=== PATIENT | male | born 1935 | race Caucasian/White ===

== ENCOUNTER 2022-08-14 22:15 | Inpatient (IN) | payer MEDICARE, OTHER ==
[2022-08-15] MEDS ORDERED: Calcium Carbonate 500 MG ChewTAB PO PRN (00:52)
[2022-08-15] MEDS ORDERED: Ondansetron PF 4 MG/2 ML Vial IVP PRN (00:52)
[2022-08-15] MEDS ORDERED: Guaifenesin DM 100-10/5 ML UDCUP PO PRN (00:52)
[2022-08-15 01:25] VITALS: BMI 35.5
[2022-08-15 05:57] LABS: Anion Gap 14 mmol/L (10-20); BUN (Urea Nitrogen) 19 mg/dL (8.4-25.7); Calc. Creatinine Clearance 80 mL/min (70-130); Calcium 9.1 mg/dL (7.8-10.44); Carbon Dioxide 28 mmol/L (23-31); Chloride 105 mmol/L (98-107); Estimated GFR 69; Glucose 100 mg/dL (83-110); Potassium 4.3 mmol/L (3.5-5.1); Sodium 143 mmol/L (136-145)
[2022-08-15 06:07] LABS: #Eosinphils 0.3 10x3/uL (0.0-0.5); #Monocytes 0.6 10x3/uL (0.0-1.1); #Neutrophils 4.3 10x3/uL (1.5-8.4); %Basophils 0.6 % (0.0-2.0); %Lymphocytes 17.3 % (18.0-47.0); %Monocytes 8.8 % (0.0-10.0); Hemoglobin 12.3 g/dL (13.5-17.5); Mean Corpuscular HGB CONC 32.1 g/dL (32.0-36.0); Mean Corpuscular Hemoglobin 34.7 pg (27.0-33.0); Mean Corpuscular Volume 108.2 fl (81.2-95.1); Mean Platelet Volume 11.2 fl (7.4-10.4); Platelet Count 135 10x3/uL (150-450); RBC Distribution Width 15.2 % (11.5-14.5); Red Blood Cell (RBC) Count 3.54 10x6/uL (4.32-5.72); White Blood Cell (WBC) Count 6.8 10x3/uL (3.5-10.5)
[2022-08-15 06:23] LABS: CKMB 2.3 ng/mL (0-6.6)
[2022-08-15 07:09] LABS: Macrocytosis MODERATE=16-30 cells (100X) (0-5/hpf)
[2022-08-15 07:10] LABS: Hypochromia SLIGHT = 6-15 cells (100X) (0-5/hpf); Ovalocytes SLIGHT = 2-5 cells (100X) (0-1/hpf)
[2022-08-15 07:20] LABS: Platelet Morphology Comment Appears Decreased
[2022-08-15] MEDS ORDERED: Docusate 100 MG CAP PO SCH (09:00)
[2022-08-15] MEDS ORDERED: Allopurinol 100 MG TAB PO SCH ×2 (09:00→23:00)
[2022-08-15] MEDS: Famotidine 20 MG TAB PO SCH ×2 (09:45→21:37)
[2022-08-15] MEDS: valACYclovir 500 MG TAB PO SCH (09:45)
[2022-08-15] MEDS: Finasteride 5 MG TAB PO SCH (09:45)
[2022-08-15] MEDS: Multivitamin w/Zinc Stress 1 TAB PO SCH (09:45)
[2022-08-15] MEDS: Furosemide 40 MG TAB PO SCH (09:45)
[2022-08-15] MEDS: Loratadine 10 MG TAB PO SCH (09:45)
[2022-08-15] MEDS: Primidone 50 MG TAB PO SCH (09:45)
[2022-08-15] MEDS: NIFEdipine XL 30 MG TAB PO SCH ×2 (09:46→09:55)
[2022-08-15] MEDS: Metoprolol Tartrate 25 MG TAB PO SCH ×2 (09:46→21:37)
[2022-08-15] MEDS: Enoxaparin 120 MG/0.8 ML SYRINGE SC SCH ×2 (09:46→21:36)
[2022-08-15] MEDS: Acetaminophen 325 MG TAB PO PRN (10:01)
[2022-08-15] MEDS: Fluticasone Propionate Nasal Spray 16 gm Bottle NASAL SCH (10:40)
[2022-08-15] MEDS: HYDROcodone/Acetaminophen 5/325 mg Tablet PO PRN ×3 (11:05→22:13)
[2022-08-15] MEDS: Magnesium Oxide 250 MG TAB PO SCH (21:37)
[2022-08-15] MEDS: Docusate 100 MG CAP PO SCH (21:37)
[2022-08-15] MEDS: Atorvastatin Calcium 20 MG TAB PO SCH (21:37)
[2022-08-16 05:00] LABS: Hemoglobin 11.5 g/dL (13.5-17.5); Mean Corpuscular HGB CONC 31.8 g/dL (32.0-36.0); Mean Corpuscular Hemoglobin 34.5 pg (27.0-33.0); Mean Corpuscular Volume 108.7 fl (81.2-95.1); Mean Platelet Volume 11.3 fl (7.4-10.4); Platelet Count 133 10x3/uL (150-450); RBC Distribution Width 15.3 % (11.5-14.5); Red Blood Cell (RBC) Count 3.33 10x6/uL (4.32-5.72); White Blood Cell (WBC) Count 5.8 10x3/uL (3.5-10.5)
[2022-08-16 05:08] LABS: Anion Gap 13 mmol/L (10-20); BUN (Urea Nitrogen) 26 mg/dL (8.4-25.7); Calc. Creatinine Clearance 65 mL/min (70-130); Calcium 8.4 mg/dL (7.8-10.44); Carbon Dioxide 27 mmol/L (23-31); Chloride 103 mmol/L (98-107); Estimated GFR 54; Glucose 90 mg/dL (83-110); Potassium 3.8 mmol/L (3.5-5.1); Sodium 139 mmol/L (136-145)
[2022-08-16] MEDS: HYDROcodone/Acetaminophen 5/325 mg Tablet PO PRN ×4 (05:35→20:27)
[2022-08-16] MEDS: Docusate 100 MG CAP PO SCH ×2 (08:43→20:21)
[2022-08-16] MEDS: NIFEdipine XL 30 MG TAB PO SCH (08:43)
[2022-08-16] MEDS: Finasteride 5 MG TAB PO SCH (08:43)
[2022-08-16] MEDS: Enoxaparin 120 MG/0.8 ML SYRINGE SC SCH ×2 (08:44→20:22)
[2022-08-16] MEDS: Furosemide 40 MG TAB PO SCH (08:44)
[2022-08-16] MEDS: Metoprolol Tartrate 25 MG TAB PO SCH ×2 (08:44→20:21)
[2022-08-16] MEDS: Multivitamin w/Zinc Stress 1 TAB PO SCH (08:44)
[2022-08-16] MEDS: Allopurinol 100 MG TAB PO SCH ×2 (08:44→20:22)
[2022-08-16] MEDS: Famotidine 20 MG TAB PO SCH ×2 (08:44→20:21)
[2022-08-16] MEDS: Loratadine 10 MG TAB PO SCH (08:44)
[2022-08-16] MEDS: Primidone 50 MG TAB PO SCH (08:53)
[2022-08-16] MEDS: valACYclovir 500 MG TAB PO SCH (08:54)
[2022-08-16] MEDS: Fluticasone Propionate Nasal Spray 16 gm Bottle NASAL SCH (08:54)
[2022-08-16] MEDS: Atorvastatin Calcium 20 MG TAB PO SCH (20:21)
[2022-08-16] MEDS: Magnesium Oxide 250 MG TAB PO SCH (20:22)
[2022-08-16] MEDS ORDERED: Colchicine 0.6 MG TAB PO SCH (20:45)
[2022-08-17] MEDS: HYDROcodone/Acetaminophen 5/325 mg Tablet PO PRN ×2 (05:45→17:43)
[2022-08-17] MEDS: Fluticasone Propionate Nasal Spray 16 gm Bottle NASAL SCH (09:52)
[2022-08-17] MEDS: Multivitamin w/Zinc Stress 1 TAB PO SCH (09:54)
[2022-08-17] MEDS: Primidone 50 MG TAB PO SCH (09:55)
[2022-08-17] MEDS: Docusate 100 MG CAP PO SCH ×2 (09:58→21:20)
[2022-08-17] MEDS: Apixaban 5 MG TAB PO SCH ×2 (09:58→21:20)
[2022-08-17] MEDS: Famotidine 20 MG TAB PO SCH ×2 (09:58→21:20)
[2022-08-17] MEDS: valACYclovir 500 MG TAB PO SCH (09:59)
[2022-08-17] MEDS: Loratadine 10 MG TAB PO SCH (09:59)
[2022-08-17] MEDS: Colchicine 0.6 MG TAB PO SCH ×2 (09:59→21:21)
[2022-08-17] MEDS: Allopurinol 100 MG TAB PO SCH ×2 (10:00→21:21)
[2022-08-17] MEDS: Metoprolol Tartrate 25 MG TAB PO SCH ×2 (10:00→21:21)
[2022-08-17] MEDS: Finasteride 5 MG TAB PO SCH (10:03)
[2022-08-17] MEDS: Atorvastatin Calcium 20 MG TAB PO SCH (21:20)
[2022-08-17] MEDS: Magnesium Oxide 250 MG TAB PO SCH (21:21)
[2022-08-18] MEDS: HYDROcodone/Acetaminophen 5/325 mg Tablet PO PRN (02:26)
[2022-08-18 05:16] LABS: Hemoglobin 11.5 g/dL (13.5-17.5); Mean Corpuscular HGB CONC 31.8 g/dL (32.0-36.0); Mean Corpuscular Hemoglobin 34.6 pg (27.0-33.0); Mean Platelet Volume 10.2 fl (7.4-10.4); Platelet Count 145 10x3/uL (150-450); Red Blood Cell (RBC) Count 3.32 10x6/uL (4.32-5.72); White Blood Cell (WBC) Count 5.4 10x3/uL (3.5-10.5)
[2022-08-18 05:29] LABS: Anion Gap 15 mmol/L (10-20); BUN (Urea Nitrogen) 19 mg/dL (8.4-25.7); Calc. Creatinine Clearance 82 mL/min (70-130); Calcium 8.8 mg/dL (7.8-10.44); Carbon Dioxide 27 mmol/L (23-31); Chloride 102 mmol/L (98-107); Estimated GFR 71; Glucose 104 mg/dL (83-110); Potassium 4.3 mmol/L (3.5-5.1); Sodium 140 mmol/L (136-145)
[2022-08-18] MEDS: Colchicine 0.6 MG TAB PO SCH ×2 (08:55→21:33)
[2022-08-18] MEDS: Docusate 100 MG CAP PO SCH ×2 (08:55→21:35)
[2022-08-18] MEDS: Apixaban 5 MG TAB PO SCH ×2 (08:56→21:34)
[2022-08-18] MEDS: Metoprolol Tartrate 25 MG TAB PO SCH ×2 (08:57→21:35)
[2022-08-18] MEDS: Allopurinol 100 MG TAB PO SCH ×2 (08:59→21:34)
[2022-08-18] MEDS: Finasteride 5 MG TAB PO SCH (08:59)
[2022-08-18] MEDS: Famotidine 20 MG TAB PO SCH ×2 (08:59→21:35)
[2022-08-18] MEDS: Loratadine 10 MG TAB PO SCH (08:59)
[2022-08-18] MEDS: Multivitamin w/Zinc Stress 1 TAB PO SCH (09:00)
[2022-08-18] MEDS: Fluticasone Propionate Nasal Spray 16 gm Bottle NASAL SCH (09:01)
[2022-08-18] MEDS: valACYclovir 500 MG TAB PO SCH (09:07)
[2022-08-18] MEDS: Primidone 50 MG TAB PO SCH (09:07)
[2022-08-18] MEDS ORDERED: Polyethylene Glycol 3350 17 GM Packet PO PRN (10:22)
[2022-08-18] MEDS ORDERED: Polyethylene Glycol 3350 17 GM Packet PO SCH (10:30)
[2022-08-18] MEDS: Magnesium Oxide 250 MG TAB PO SCH (21:33)
[2022-08-18] MEDS: Atorvastatin Calcium 20 MG TAB PO SCH (21:33)
[2022-08-18] MEDS: Acetaminophen 325 MG TAB PO PRN (21:40)
[2022-08-18 22:30] LABS: #Basophils 0.1 10x3/uL (0.0-0.2); #Eosinphils 0.8 10x3/uL (0.0-0.5); #Monocytes 0.5 10x3/uL (0.0-1.1); #Neutrophils 3.7 10x3/uL (1.5-8.4); %Lymphocytes 16.4 % (18.0-47.0); %Monocytes 7.7 % (0.0-10.0); %Neutrophils 61.4 % (40.0-75.0); Hemoglobin 11.9 g/dL (13.5-17.5); Mean Corpuscular Hemoglobin 35.5 pg (27.0-33.0); Mean Platelet Volume 10.2 fl (7.4-10.4); Platelet Count 151 10x3/uL (150-450); Red Blood Cell (RBC) Count 3.35 10x6/uL (4.32-5.72); White Blood Cell (WBC) Count 6.1 10x3/uL (3.5-10.5)
[2022-08-18 22:47] LABS: ALT (SGPT) 36 U/L (8-55); AST (SGOT) 52 U/L (5-34); Albumin 3.4 g/dL (3.4-4.8); Alkaline Phosphatase 103 U/L (40-110); Anion Gap 14 mmol/L (10-20); BUN (Urea Nitrogen) 22 mg/dL (8.4-25.7); Bilirubin, Total 0.3 mg/dL (0.2-1.2); Calc. Creatinine Clearance 71 mL/min (70-130); Carbon Dioxide 29 mmol/L (23-31); Chloride 103 mmol/L (98-107); Estimated GFR 59; Globulin 2.3 g/dL (2.4-3.5); Glucose 138 mg/dL (83-110); Magnesium 2.2 mg/dL (1.6-2.6); Protein, Total 5.7 g/dL (5.8-8.1); Sodium 141 mmol/L (136-145)
[2022-08-18 22:49] LABS: Anisocytosis SLIGHT = 6-15 cells (100X) (0-5/hpf); Elliptocytes SLIGHT = 2-5 cells (100X) (0-1/hpf); Macrocytosis SLIGHT = 6-15 cells (100X) (0-5/hpf); Microcytosis SLIGHT = 6-15 cells (100X) (0-5/hpf)
[2022-08-18 22:50] LABS: Platelet Morphology Comment Appears Adequate
[2022-08-18 22:53] LABS: Troponin I 0.026 ng/mL (< 0.028)
[2022-08-19] MEDS: Fluticasone Propionate Nasal Spray 16 gm Bottle NASAL SCH (08:42)
[2022-08-19] MEDS: Famotidine 20 MG TAB PO SCH ×2 (08:43→20:35)
[2022-08-19] MEDS: Primidone 50 MG TAB PO SCH (08:43)
[2022-08-19] MEDS: Loratadine 10 MG TAB PO SCH (08:43)
[2022-08-19] MEDS: Allopurinol 100 MG TAB PO SCH ×2 (08:43→20:35)
[2022-08-19] MEDS: valACYclovir 500 MG TAB PO SCH (08:43)
[2022-08-19] MEDS: Multivitamin w/Zinc Stress 1 TAB PO SCH (08:43)
[2022-08-19] MEDS: HYDROcodone/Acetaminophen 5/325 mg Tablet PO PRN ×2 (08:43→20:36)
[2022-08-19] MEDS: Docusate 100 MG CAP PO SCH ×2 (08:43→20:36)
[2022-08-19] MEDS: Metoprolol Tartrate 25 MG TAB PO SCH ×2 (08:43→20:36)
[2022-08-19] MEDS: Colchicine 0.6 MG TAB PO SCH ×2 (08:44→20:35)
[2022-08-19] MEDS: Finasteride 5 MG TAB PO SCH (08:44)
[2022-08-19] MEDS: Apixaban 5 MG TAB PO SCH ×2 (08:44→20:34)
[2022-08-19] MEDS: Atorvastatin Calcium 20 MG TAB PO SCH (20:35)
[2022-08-19] MEDS: Magnesium Oxide 250 MG TAB PO SCH (20:36)
[2022-08-20] MEDS: Primidone 50 MG TAB PO SCH (08:08)
[2022-08-20] MEDS: Allopurinol 100 MG TAB PO SCH ×2 (08:08→21:32)
[2022-08-20] MEDS: Multivitamin w/Zinc Stress 1 TAB PO SCH (08:08)
[2022-08-20] MEDS: valACYclovir 500 MG TAB PO SCH (08:08)
[2022-08-20] MEDS: Senokot S 8.6-50 MG TAB PO PRN (08:08)
[2022-08-20] MEDS: Fluticasone Propionate Nasal Spray 16 gm Bottle NASAL SCH (08:08)
[2022-08-20] MEDS: Docusate 100 MG CAP PO SCH ×2 (08:08→21:31)
[2022-08-20] MEDS: Colchicine 0.6 MG TAB PO SCH ×2 (08:09→21:32)
[2022-08-20] MEDS: Famotidine 20 MG TAB PO SCH ×2 (08:09→21:31)
[2022-08-20] MEDS: Loratadine 10 MG TAB PO SCH (08:09)
[2022-08-20] MEDS: HYDROcodone/Acetaminophen 5/325 mg Tablet PO PRN ×2 (08:09→21:33)
[2022-08-20] MEDS: Metoprolol Tartrate 25 MG TAB PO SCH ×2 (08:09→21:33)
[2022-08-20] MEDS: Apixaban 5 MG TAB PO SCH ×2 (08:09→21:33)
[2022-08-20] MEDS: Finasteride 5 MG TAB PO SCH (08:09)
[2022-08-20 11:00] LABS: Bilirubin Neg (Negative); Blood, Urine Negative (Negative); Clarity Clear (Clear); Glucose, Urine (Dipstick) Normal (Negative); Ketone, Urine Negative (Negative); Leukocyte 25 (Negative); Nitrite Negative (Negative); Protein, Urine (Dipstick) 30 mg/dl (Neg-Trace); Urobilinogen Normal mg/dL (Less than 2)
[2022-08-20 11:13] LABS: Bacteria/HPF Rare-Few HPF (None Seen); CAUTI Indications for Culture Alt mental st,lethar; RBC/HPF None Seen HPF (0-3); Squamous Epithelial 0-3 HPF (0-3); WBC/HPF 0-3 HPF (0-3)
[2022-08-20 11:14] LABS: Urine Culture Reflex No No
[2022-08-20] MEDS: Magnesium Oxide 250 MG TAB PO SCH (21:32)
[2022-08-20] MEDS: Atorvastatin Calcium 20 MG TAB PO SCH (21:32)
[2022-08-20] MEDS: Sacubitril 24MG/Valsartan 26 MG TAB PO SCH (21:32)
[2022-08-21] MEDS: Metoprolol Tartrate 25 MG TAB PO SCH ×2 (08:14→20:20)
[2022-08-21] MEDS: Sacubitril 24MG/Valsartan 26 MG TAB PO SCH ×2 (08:15→20:19)
[2022-08-21] MEDS: Fluticasone Propionate Nasal Spray 16 gm Bottle NASAL SCH (08:15)
[2022-08-21] MEDS: valACYclovir 500 MG TAB PO SCH (08:15)
[2022-08-21] MEDS: Senokot S 8.6-50 MG TAB PO PRN (08:15)
[2022-08-21] MEDS: HYDROcodone/Acetaminophen 5/325 mg Tablet PO PRN ×2 (08:15→20:20)
[2022-08-21] MEDS: Colchicine 0.6 MG TAB PO SCH ×2 (08:15→20:19)
[2022-08-21] MEDS: Docusate 100 MG CAP PO SCH ×2 (08:15→20:19)
[2022-08-21] MEDS: Finasteride 5 MG TAB PO SCH (08:15)
[2022-08-21] MEDS: Famotidine 20 MG TAB PO SCH ×2 (08:16→20:19)
[2022-08-21] MEDS: Apixaban 5 MG TAB PO SCH ×2 (08:16→20:19)
[2022-08-21] MEDS: Loratadine 10 MG TAB PO SCH (08:16)
[2022-08-21] MEDS: Primidone 50 MG TAB PO SCH (08:16)
[2022-08-21] MEDS: Multivitamin w/Zinc Stress 1 TAB PO SCH (08:16)
[2022-08-21] MEDS: Allopurinol 100 MG TAB PO SCH ×2 (08:16→20:20)
[2022-08-21] MEDS: Magnesium Oxide 250 MG TAB PO SCH (20:19)
[2022-08-21] MEDS: Atorvastatin Calcium 20 MG TAB PO SCH (20:20)
[2022-08-22 05:05] LABS: Hemoglobin 12.8 g/dL (13.5-17.5); Mean Corpuscular HGB CONC 32.2 g/dL (32.0-36.0); Mean Corpuscular Hemoglobin 35.4 pg (27.0-33.0); Mean Corpuscular Volume 109.7 fl (81.2-95.1); Mean Platelet Volume 10.8 fl (7.4-10.4); Platelet Count 155 10x3/uL (150-450); RBC Distribution Width 14.7 % (11.5-14.5); Red Blood Cell (RBC) Count 3.62 10x6/uL (4.32-5.72); White Blood Cell (WBC) Count 4.8 10x3/uL (3.5-10.5)
[2022-08-22 05:23] LABS: Anion Gap 16 mmol/L (10-20); BUN (Urea Nitrogen) 20 mg/dL (8.4-25.7); Calc. Creatinine Clearance 89 mL/min (70-130); Calcium 9.2 mg/dL (7.8-10.44); Carbon Dioxide 28 mmol/L (23-31); Chloride 102 mmol/L (98-107); Estimated GFR 78; Glucose 102 mg/dL (83-110); Potassium 4.6 mmol/L (3.5-5.1); Sodium 141 mmol/L (136-145)
[2022-08-22] MEDS: HYDROcodone/Acetaminophen 5/325 mg Tablet PO PRN (05:48)
[2022-08-22] MEDS: Finasteride 5 MG TAB PO SCH (08:09)
[2022-08-22] MEDS: Fluticasone Propionate Nasal Spray 16 gm Bottle NASAL SCH (08:09)
[2022-08-22] MEDS: Apixaban 5 MG TAB PO SCH ×2 (08:10→21:37)
[2022-08-22] MEDS: Allopurinol 100 MG TAB PO SCH ×2 (08:12→21:36)
[2022-08-22] MEDS: Primidone 50 MG TAB PO SCH (08:13)
[2022-08-22] MEDS: Sacubitril 24MG/Valsartan 26 MG TAB PO SCH ×2 (08:14→21:37)
[2022-08-22] MEDS: Loratadine 10 MG TAB PO SCH (08:14)
[2022-08-22] MEDS: Multivitamin w/Zinc Stress 1 TAB PO SCH (08:14)
[2022-08-22] MEDS: Metoprolol Tartrate 25 MG TAB PO SCH ×2 (08:15→21:38)
[2022-08-22] MEDS: Docusate 100 MG CAP PO SCH ×2 (08:15→21:37)
[2022-08-22] MEDS: Famotidine 20 MG TAB PO SCH ×2 (08:15→21:37)
[2022-08-22] MEDS: Colchicine 0.6 MG TAB PO SCH ×2 (08:16→21:37)
[2022-08-22] MEDS: valACYclovir 500 MG TAB PO SCH (09:09)
[2022-08-22] MEDS: Magnesium Oxide 250 MG TAB PO SCH (21:37)
[2022-08-22] MEDS: Atorvastatin Calcium 20 MG TAB PO SCH (21:37)
[2022-08-22] MEDS: Acetaminophen 325 MG TAB PO PRN (21:46)
[2022-08-23 04:21] LABS: Bilirubin Neg (Negative); Blood, Urine Negative (Negative); Clarity Clear (Clear); Glucose, Urine (Dipstick) Normal (Negative); Ketone, Urine Negative (Negative); Leukocyte Negative (Negative); Nitrite Negative (Negative); Protein, Urine (Dipstick) 15 mg/dl (Neg-Trace); Urobilinogen Normal mg/dL (Less than 2)
[2022-08-23 04:28] LABS: Bacteria/HPF None Seen HPF (None Seen); CAUTI Indications for Culture Alt mental st,lethar; RBC/HPF 0-3 HPF (0-3); Squamous Epithelial 0-3 HPF (0-3); Urine Culture Reflex No No; WBC/HPF 0-3 HPF (0-3)
[2022-08-23] MEDS: Fluticasone Propionate Nasal Spray 16 gm Bottle NASAL SCH (08:35)
[2022-08-23] MEDS: Primidone 50 MG TAB PO SCH (08:36)
[2022-08-23] MEDS: Multivitamin w/Zinc Stress 1 TAB PO SCH (08:37)
[2022-08-23] MEDS: Sacubitril 24MG/Valsartan 26 MG TAB PO SCH (08:37)
[2022-08-23] MEDS: Docusate 100 MG CAP PO SCH (08:37)
[2022-08-23] MEDS: Metoprolol Tartrate 25 MG TAB PO SCH (08:38)
[2022-08-23] MEDS: valACYclovir 500 MG TAB PO SCH (08:38)
[2022-08-23] MEDS: Famotidine 20 MG TAB PO SCH (08:40)
[2022-08-23] MEDS: Colchicine 0.6 MG TAB PO SCH (08:42)
[2022-08-23] MEDS: Apixaban 5 MG TAB PO SCH (08:44)
[2022-08-23] MEDS: Allopurinol 100 MG TAB PO SCH (08:45)
[2022-08-23] MEDS: Finasteride 5 MG TAB PO SCH (08:46)
[2022-08-23] MEDS ORDERED: Amoxicillin/Potassium Clav 875 MG TAB PO SCH ×2 (10:15→21:00)
[2022-08-23 10:19] LABS: #Basophils 0.1 10x3/uL (0.0-0.2); #Eosinphils 0.7 10x3/uL (0.0-0.5); #Monocytes 0.7 10x3/uL (0.0-1.1); #Neutrophils 2.8 10x3/uL (1.5-8.4); %Basophils 0.9 % (0.0-2.0); %Eosinophils 13.5 % (0.0-6.0); %Lymphocytes 19.9 % (18.0-47.0); %Monocytes 13.1 % (0.0-10.0); %Neutrophils 52.2 % (40.0-75.0); Hemoglobin 12.5 g/dL (13.5-17.5); Mean Corpuscular HGB CONC 32.1 g/dL (32.0-36.0); Mean Corpuscular Hemoglobin 35.1 pg (27.0-33.0); Mean Corpuscular Volume 109.6 fl (81.2-95.1); Mean Platelet Volume 10.8 fl (7.4-10.4); Platelet Count 149 10x3/uL (150-450); RBC Distribution Width 14.7 % (11.5-14.5); Red Blood Cell (RBC) Count 3.56 10x6/uL (4.32-5.72); White Blood Cell (WBC) Count 5.3 10x3/uL (3.5-10.5)
[2022-08-23 10:36] LABS: ALT (SGPT) 32 U/L (8-55); AST (SGOT) 24 U/L (5-34); Albumin 3.3 g/dL (3.4-4.8); Alkaline Phosphatase 108 U/L (40-110); Anion Gap 13 mmol/L (10-20); BUN (Urea Nitrogen) 22 mg/dL (8.4-25.7); Bilirubin, Total 0.3 mg/dL (0.2-1.2); Calc. Creatinine Clearance 83 mL/min (70-130); Calcium 9.1 mg/dL (7.8-10.44); Carbon Dioxide 28 mmol/L (23-31); Chloride 105 mmol/L (98-107); Estimated GFR 72; Globulin 2.3 g/dL (2.4-3.5); Glucose 128 mg/dL (83-110); Magnesium 2.1 mg/dL (1.6-2.6); Potassium 4.1 mmol/L (3.5-5.1); Protein, Total 5.6 g/dL (5.8-8.1); Sodium 142 mmol/L (136-145)
[2022-08-23 12:55] VITALS: TEMP 97.8
[2022-08-23 13:23] VITALS: BP 135/71
[2022-08-24] MEDS ORDERED: Apixaban 5 MG TAB PO SCH (09:00)
== END 2022-08-23 13:42 | disposition home or self-care (01) | DRG 299 ==
LOC: CSHTELE 22:50
PROVIDERS: ADMIT Student in an Organized Health Care Education/Training Program; ATTEND Family Medicine
PROC: 5A09357 Assistance with Respiratory Ventilation, Less than 24 Consecutive Hours, Continuous Positive Airway Pressure (ICD-10-PCS; principal; 2022-08-17)
DX: I82.412 Acute embolism and thrombosis of left femoral vein (principal); G92.8 Other toxic encephalopathy; I26.99 Other pulmonary embolism without acute cor pulmonale; J96.01 Acute respiratory failure with hypoxia; I50.21 Acute systolic (congestive) heart failure; C90.00 Multiple myeloma not having achieved remission; J98.11 Atelectasis; I42.8 Other cardiomyopathies; I13.0 Hypertensive heart and chronic kidney disease with heart failure and stage 1 through stage 4 chronic kidney disease, or unspecified chronic kidney disease; I82.432 Acute embolism and thrombosis of left popliteal vein; E78.5 Hyperlipidemia, unspecified; I25.10 Atherosclerotic heart disease of native coronary artery without angina pectoris; G62.9 Polyneuropathy, unspecified; D53.9 Nutritional anemia, unspecified; J30.9 Allergic rhinitis, unspecified; N40.0 Benign prostatic hyperplasia without lower urinary tract symptoms; N18.9 Chronic kidney disease, unspecified; G89.29 Other chronic pain; I25.118 Atherosclerotic heart disease of native coronary artery with other forms of angina pectoris; E78.2 Mixed hyperlipidemia; I70.213 Atherosclerosis of native arteries of extremities with intermittent claudication, bilateral legs; F03.90 Unspecified dementia, unspecified severity, without behavioral disturbance, psychotic disturbance, mood disturbance, and anxiety; M10.9 Gout, unspecified; T50.995A Adverse effect of other drugs, medicaments and biological substances, initial encounter; Z79.899 Other long term (current) drug therapy; Z98.890 Other specified postprocedural states; Z87.891 Personal history of nicotine dependence; Z95.1 Presence of aortocoronary bypass graft
CPT/HCPCS: 36415; 36416; 70450; 71045; 71275; 80048; 80053; 81001; 81003; 82553; 83605; 83735; 83880; 84484; 85025; 85027; 93005; 93010; 93306; 94760; 94762; 96372; J1650